=== PATIENT | female | born 1960 | race Caucasian/White ===

== ENCOUNTER → 2017-10-21 11:19 | Outpatient (REF) | payer MEDICARE, SELFPAY ==
[2017-10-21 14:00] LABS: Amphetamine/Metha Screen,Urine Negative ng/mL (<1000); Barbiturates Screen,Urine Negative ng/mL (<200); Benzodiazepines Screen,Urine Negative ng/mL (200); Cannabinoid Screen,Urine Positive ng/mL (<50); Cocaine Screen,Urine Negative ng/g (<300); Methadone Screen,Urine Negative ng/mL (<300); Opiate Screen,Urine Positive ng/mL (<300); Phencyclidine Screen,Urine Negative ng/mL (<25)
== END ==
LOC: LAB 11:19
PROVIDERS: Visit Provider Emergency Medicine
DX: Z79.899 Other long term (current) drug therapy (principal)
CPT/HCPCS: 80305

== ENCOUNTER → 2017-11-18 13:51 | Outpatient (REF) | payer MEDICARE, SELFPAY ==
[2017-11-18 14:20] LABS: Amphetamine/Metha Screen,Urine Negative ng/mL (<1000); Barbiturates Screen,Urine Negative ng/mL (<200); Benzodiazepines Screen,Urine Negative ng/mL (200); Cannabinoid Screen,Urine Negative ng/mL (<50); Cocaine Screen,Urine Negative ng/g (<300); Methadone Screen,Urine Negative ng/mL (<300); Opiate Screen,Urine Positive ng/mL (<300); Phencyclidine Screen,Urine Negative ng/mL (<25)
== END ==
LOC: LAB 13:51
PROVIDERS: Visit Provider Emergency Medicine
DX: M51.36 Other intervertebral disc degeneration, lumbar region (principal)
CPT/HCPCS: 80305

== ENCOUNTER → 2017-12-15 10:25 | Outpatient (REF) | payer MEDICARE, SELFPAY ==
[2017-12-15 13:52] LABS: Amphetamine/Metha Screen,Urine Negative ng/mL (<1000); Barbiturates Screen,Urine Negative ng/mL (<200); Benzodiazepines Screen,Urine Positive ng/mL (200); Cannabinoid Screen,Urine Positive ng/mL (<50); Cocaine Screen,Urine Negative ng/g (<300); Methadone Screen,Urine Negative ng/mL (<300); Opiate Screen,Urine Positive ng/mL (<300); Phencyclidine Screen,Urine Negative ng/mL (<25)
== END ==
LOC: LAB 10:25
PROVIDERS: Visit Provider Emergency Medicine
DX: M51.36 Other intervertebral disc degeneration, lumbar region (principal)
CPT/HCPCS: 80305

== ENCOUNTER → 2018-02-10 13:04 | Outpatient (REF) | payer MEDICARE, MEDICAID, SELFPAY ==
[2018-02-10 20:42] LABS: Amphetamine/Metha Screen,Urine Negative ng/mL (<1000); Barbiturates Screen,Urine Negative ng/mL (<200); Benzodiazepines Screen,Urine Negative ng/mL (200); Cannabinoid Screen,Urine Positive ng/mL (<50); Cocaine Screen,Urine Negative ng/g (<300); Methadone Screen,Urine Negative ng/mL (<300); Opiate Screen,Urine Positive ng/mL (<300); Phencyclidine Screen,Urine Negative ng/mL (<25)
== END ==
LOC: LAB 13:04
PROVIDERS: Visit Provider Emergency Medicine
DX: M51.36 Other intervertebral disc degeneration, lumbar region (principal); Z79.899 Other long term (current) drug therapy
CPT/HCPCS: 80305

== ENCOUNTER → 2018-03-16 09:11 | Outpatient (REF) | payer MEDICARE, MEDICAID, SELFPAY ==
[2018-03-16 14:37] LABS: Amphetamine/Metha Screen,Urine Negative ng/mL (<1000); Barbiturates Screen,Urine Negative ng/mL (<200); Benzodiazepines Screen,Urine Positive ng/mL (200); Cannabinoid Screen,Urine Positive ng/mL (<50); Cocaine Screen,Urine Negative ng/g (<300); Methadone Screen,Urine Negative ng/mL (<300); Opiate Screen,Urine Positive ng/mL (<300); Phencyclidine Screen,Urine Negative ng/mL (<25)
== END ==
LOC: LAB 09:11
PROVIDERS: Visit Provider Emergency Medicine
DX: M51.36 Other intervertebral disc degeneration, lumbar region (principal)
CPT/HCPCS: 80305

== ENCOUNTER → 2018-04-12 09:57 | Outpatient (REF) | payer MEDICARE, MEDICAID, SELFPAY ==
[2018-04-12 13:44] LABS: Amphetamine/Metha Screen,Urine Negative ng/mL (<1000); Barbiturates Screen,Urine Negative ng/mL (<200); Benzodiazepines Screen,Urine Negative ng/mL (<200); Cannabinoid Screen,Urine Negative ng/mL (<50); Cocaine Screen,Urine Negative ng/mL (<300); Methadone Screen,Urine Negative ng/mL (<300); Opiate Screen,Urine Positive ng/mL (<300); Phencyclidine Screen,Urine Negative ng/mL (<25)
== END ==
LOC: LAB 09:57
PROVIDERS: Visit Provider Emergency Medicine
DX: M51.36 Other intervertebral disc degeneration, lumbar region (principal)
CPT/HCPCS: 80305

== ENCOUNTER → 2018-05-12 10:09 | Outpatient (REF) | payer MEDICARE, MEDICAID, SELFPAY ==
[2018-05-12 13:59] LABS: Amphetamine/Metha Screen,Urine Negative ng/mL (<1000); Barbiturates Screen,Urine Negative ng/mL (<200); Benzodiazepines Screen,Urine Positive ng/mL (<200); Cannabinoid Screen,Urine Positive ng/mL (<50); Cocaine Screen,Urine Negative ng/mL (<300); Methadone Screen,Urine Negative ng/mL (<300); Opiate Screen,Urine Positive ng/mL (<300); Phencyclidine Screen,Urine Negative ng/mL (<25)
== END ==
LOC: LAB 10:09
PROVIDERS: Visit Provider Emergency Medicine
DX: M51.36 Other intervertebral disc degeneration, lumbar region (principal)
CPT/HCPCS: 80305

== ENCOUNTER → 2018-07-05 11:27 | Outpatient (REF) | payer MEDICARE, MEDICAID, SELFPAY ==
[2018-07-05 13:24] LABS: Amphetamine/Metha Screen,Urine Negative ng/mL (<1000); Barbiturates Screen,Urine Negative ng/mL (<200); Benzodiazepines Screen,Urine Negative ng/mL (<200); Cannabinoid Screen,Urine Positive ng/mL (<50); Cocaine Screen,Urine Negative ng/mL (<300); Methadone Screen,Urine Negative ng/mL (<300); Opiate Screen,Urine Positive ng/mL (<300); Phencyclidine Screen,Urine Negative ng/mL (<25)
== END ==
LOC: LAB 11:27
PROVIDERS: Visit Provider Emergency Medicine
DX: Z79.899 Other long term (current) drug therapy (principal)
CPT/HCPCS: 80305

== ENCOUNTER → 2018-08-04 13:49 | Outpatient (CLI) | payer MEDICARE, MEDICAID, SELFPAY ==
[2018-08-04 14:33] LABS: Amphetamine/Metha Screen,Urine Negative ng/mL (<1000); Barbiturates Screen,Urine Negative ng/mL (<200); Benzodiazepines Screen,Urine Negative ng/mL (<200); Cannabinoid Screen,Urine Negative ng/mL (<50); Cocaine Screen,Urine Negative ng/mL (<300); Methadone Screen,Urine Negative ng/mL (<300); Opiate Screen,Urine Negative ng/mL (<300); Phencyclidine Screen,Urine Negative ng/mL (<25)
== END ==
PROVIDERS: PCP Emergency Medicine; Visit Provider Emergency Medicine
DX: M51.36 Other intervertebral disc degeneration, lumbar region (principal)
CPT/HCPCS: 80305

== ENCOUNTER → 2018-09-03 14:42 | Outpatient (CLI) | payer MEDICARE, MEDICAID, SELFPAY ==
[2018-09-03 16:35] LABS: Amphetamine/Metha Screen,Urine Negative ng/mL (<1000); Barbiturates Screen,Urine Negative ng/mL (<200); Benzodiazepines Screen,Urine Negative ng/mL (<200); Cannabinoid Screen,Urine Positive ng/mL (<50); Cocaine Screen,Urine Negative ng/mL (<300); Methadone Screen,Urine Negative ng/mL (<300); Opiate Screen,Urine Positive ng/mL (<300); Phencyclidine Screen,Urine Negative ng/mL (<25)
== END ==
PROVIDERS: Visit Provider Emergency Medicine
DX: M54.16 Radiculopathy, lumbar region (principal)
CPT/HCPCS: 80305

== ENCOUNTER → 2018-09-15 21:32 | Outpatient (CLI) | payer MEDICARE, MEDICAID, SELFPAY ==
[2018-09-15 21:56] LABS: Amphetamine/Metha Screen,Urine Negative ng/mL (<1000); Barbiturates Screen,Urine Negative ng/mL (<200); Benzodiazepines Screen,Urine Negative ng/mL (<200); Cannabinoid Screen,Urine Positive ng/mL (<50); Cocaine Screen,Urine Negative ng/mL (<300); Methadone Screen,Urine Negative ng/mL (<300); Opiate Screen,Urine Negative ng/mL (<300); Phencyclidine Screen,Urine Negative ng/mL (<25)
[2018-09-28 11:07] LABS: Oxymorphone (GC/MS) 2622
[2018-09-28 11:09] LABS: Opiates Negative
== END ==
PROVIDERS: Visit Provider Emergency Medicine
DX: M54.16 Radiculopathy, lumbar region (principal)
CPT/HCPCS: 80305; 80361; 80365; G0480

== ENCOUNTER → 2018-09-29 13:42 | Outpatient (CLI) | payer MEDICARE, MEDICAID, SELFPAY ==
[2018-09-29 14:39] LABS: Amphetamine/Metha Screen,Urine Negative ng/mL (<1000); Barbiturates Screen,Urine Negative ng/mL (<200); Benzodiazepines Screen,Urine Negative ng/mL (<200); Cannabinoid Screen,Urine Positive ng/mL (<50); Cocaine Screen,Urine Positive ng/mL (<300); Methadone Screen,Urine Negative ng/mL (<300); Opiate Screen,Urine Positive ng/mL (<300); Phencyclidine Screen,Urine Negative ng/mL (<25)
[2018-10-04 15:21] LABS: Benzoylecgonine (GC/MS) 830 ng/mL (Cutoff=150); Cocaine + Metabolite Positive (.)
== END ==
PROVIDERS: Visit Provider Emergency Medicine
DX: M54.5 Low back pain (principal); Z79.899 Other long term (current) drug therapy
CPT/HCPCS: 80305; 80353

== ENCOUNTER → 2018-10-22 13:53 | Outpatient (CLI) | payer MEDICARE, MEDICAID, SELFPAY ==
[2018-10-22 15:39] LABS: Amphetamine/Metha Screen,Urine Negative ng/mL (<1000); Barbiturates Screen,Urine Negative ng/mL (<200); Benzodiazepines Screen,Urine Negative ng/mL (<200); Cannabinoid Screen,Urine Negative ng/mL (<50); Cocaine Screen,Urine Negative ng/mL (<300); Methadone Screen,Urine Negative ng/mL (<300); Opiate Screen,Urine Positive ng/mL (<300); Phencyclidine Screen,Urine Negative ng/mL (<25)
== END ==
PROVIDERS: PCP Emergency Medicine; Visit Provider Emergency Medicine
DX: Z79.899 Other long term (current) drug therapy (principal)
CPT/HCPCS: 80305

== ENCOUNTER → 2018-11-23 14:10 | Outpatient (CLI) | payer MEDICARE, MEDICAID, SELFPAY ==
[2018-11-23 14:43] LABS: Basophils % 0.6 % (0.1-2.0); Eosinophils # 0.3 K/mm3 (0.0-0.4); Eosinophils % 4.7 % (0.1-12.0); Hematocrit 41.8 % (37.0-47.0); Hemoglobin 13.5 g/dL (12.2-16.2); Lymphocytes % 30.1 % (10-50); Mean Corpuscular HGB Conc 32.4 g/dL (31.8-35.4); Mean Corpuscular Hemoglobin 30.1 pg (27.0-31.2); Mean Platelet Volume 8.5 fl (7.4-10.4); Monocytes # 0.3 K/mm3 (0.1-1.0); Monocytes % 4.4 % (1.7-9.3); Neutrophils % 60.2 % (37.0-80.0); Platelet Count 226 K/mm3 (142-424); Red Cell Distribution Width 13.7 % (11.5-17.5); White Blood Count 6.7 K/mm3 (4.8-10.8)
[2018-11-23 15:06] LABS: Alanine Aminotransferase 24 U/L (12-78); Albumin Level 3.6 gm/dL (3.4-5.0); Alkaline Phosphatase 99 U/L (46-116); Anion Gap 12.1 mEq/L (5-15); Aspartate Amino Transferase 12 U/L (15-37); Bilirubin,Total 0.2 mg/dL (0.2-1.0); Blood Urea Nitrogen 14 mg/dL (7-18); Calcium 8.9 mg/dL (8.5-10.1); Carbon Dioxide 30 mmol/L (21.0-32.0); Chloride 103 mmol/L (98-107); Cholesterol 228 mg/dL (140-200); Creatinine,Serum 0.92 mg/dL (0.55-1.02); Estimated Glomerular Filt Rate 63 ml/min (>60); Free T4 (Free Thyroxine) 0.91 ng/dl (0.76-1.46); GFR (African American) 76 ML/MIN (>60); Globulin 3.5 gm/dl (1.3-3.2); Glucose 91 mg/dL (74-106); HDL Cholesterol 57 mg/dL (29-89); LDL Cholesterol 135 mg/dL (0-130); Potassium 4.1 mmoL/L (3.5-5.1); Sodium 141 mmol/L (136-145); Thyroid Stimulating Hormone 1.55 uIU/ml (0.358-3.740); Total Protein,Serum 7.1 gm/dL (6.4-8.2); Triglycerides 180 mg/dL (30-200); VLDL Cholesterol 36 mg/dL (0-40)
[2018-11-23 15:46] LABS: Amphetamine/Metha Screen,Urine Negative ng/mL (<1000); Barbiturates Screen,Urine Negative ng/mL (<200); Benzodiazepines Screen,Urine Negative ng/mL (<200); Cannabinoid Screen,Urine Negative ng/mL (<50); Cocaine Screen,Urine Negative ng/mL (<300); Methadone Screen,Urine Negative ng/mL (<300); Opiate Screen,Urine Negative ng/mL (<300); Phencyclidine Screen,Urine Negative ng/mL (<25)
[2018-11-27 10:06] LABS: Vitamin D 25 Hydroxy 8.1 ng/mL (30.0-100.0)
== END ==
PROVIDERS: Visit Provider Emergency Medicine
DX: Z79.899 Other long term (current) drug therapy (principal); I10 Essential (primary) hypertension; F17.210 Nicotine dependence, cigarettes, uncomplicated
CPT/HCPCS: 80053; 80061; 80305; 82652; 84439; 84443; 85025

== ENCOUNTER → 2019-01-18 17:29 | Outpatient (CLI) | payer MEDICARE, MEDICAID, SELFPAY ==
[2019-01-18 19:08] LABS: Amphetamine/Metha Screen,Urine Negative ng/mL (<1000); Barbiturates Screen,Urine Negative ng/mL (<200); Benzodiazepines Screen,Urine Negative ng/mL (<200); Cannabinoid Screen,Urine Negative ng/mL (<50); Cocaine Screen,Urine Negative ng/mL (<300); Methadone Screen,Urine Negative ng/mL (<300); Opiate Screen,Urine Positive ng/mL (<300); Phencyclidine Screen,Urine Negative ng/mL (<25)
== END ==
PROVIDERS: Visit Provider Emergency Medicine
DX: Z79.899 Other long term (current) drug therapy (principal)
CPT/HCPCS: 80305

== ENCOUNTER → 2019-03-16 18:02 | Outpatient (CLI) | payer MEDICARE, MEDICAID, SELFPAY ==
[2019-03-16 18:22] LABS: Amphetamine/Metha Screen,Urine Negative ng/mL (<1000); Barbiturates Screen,Urine Negative ng/mL (<200); Benzodiazepines Screen,Urine Negative ng/mL (<200); Cannabinoid Screen,Urine Negative ng/mL (<50); Cocaine Screen,Urine Negative ng/mL (<300); Methadone Screen,Urine Negative ng/mL (<300); Opiate Screen,Urine Positive ng/mL (<300); Phencyclidine Screen,Urine Negative ng/mL (<25)
== END ==
PROVIDERS: Visit Provider Emergency Medicine
DX: Z79.899 Other long term (current) drug therapy (principal)
CPT/HCPCS: 80305

== ENCOUNTER → 2019-05-13 13:29 | Outpatient (CLI) | payer MEDICARE, MEDICAID, SELFPAY ==
[2019-05-13 16:02] LABS: Amphetamine/Metha Screen,Urine Negative ng/mL (<1000); Barbiturates Screen,Urine Negative ng/mL (<200); Benzodiazepines Screen,Urine Negative ng/mL (<200); Cannabinoid Screen,Urine Negative ng/mL (<50); Cocaine Screen,Urine Negative ng/mL (<300); Methadone Screen,Urine Negative ng/mL (<300); Opiate Screen,Urine Positive ng/mL (<300); Phencyclidine Screen,Urine Negative ng/mL (<25)
== END ==
PROVIDERS: Visit Provider Emergency Medicine
DX: M54.16 Radiculopathy, lumbar region (principal)
CPT/HCPCS: 80305

== ENCOUNTER → 2019-07-04 13:28 | Outpatient (CLI) | payer MEDICARE, MEDICAID, SELFPAY ==
[2019-07-04 17:04] LABS: Amphetamine/Metha Screen,Urine Negative ng/mL (<1000); Barbiturates Screen,Urine Negative ng/mL (<200); Benzodiazepines Screen,Urine Negative ng/mL (<200); Cannabinoid Screen,Urine Negative ng/mL (<50); Cocaine Screen,Urine Negative ng/mL (<300); Methadone Screen,Urine Negative ng/mL (<300); Opiate Screen,Urine Positive ng/mL (<300); Phencyclidine Screen,Urine Negative ng/mL (<25)
== END ==
PROVIDERS: Visit Provider Emergency Medicine
DX: M54.16 Radiculopathy, lumbar region (principal)
CPT/HCPCS: 80305

== ENCOUNTER → 2019-09-02 13:34 | Outpatient (CLI) | payer MEDICARE, MEDICAID, SELFPAY ==
[2019-09-02 16:27] LABS: Amphetamine/Metha Screen,Urine Negative ng/mL (<1000); Barbiturates Screen,Urine Negative ng/mL (<200); Benzodiazepines Screen,Urine Negative ng/mL (<200); Cannabinoid Screen,Urine Negative ng/mL (<50); Cocaine Screen,Urine Negative ng/mL (<300); Methadone Screen,Urine Negative ng/mL (<300); Opiate Screen,Urine Positive ng/mL (<300); Phencyclidine Screen,Urine Negative ng/mL (<25)
== END ==
PROVIDERS: Visit Provider Emergency Medicine
DX: M54.16 Radiculopathy, lumbar region (principal)
CPT/HCPCS: 80305

== ENCOUNTER → 2019-11-07 13:23 | Outpatient (CLI) | payer MEDICARE, MEDICAID, SELFPAY ==
[2019-11-07 13:38] LABS: Basophils # 0.1 K/mm3 (0-0.2); Basophils % 0.9 % (0.1-2.0); Eosinophils # 0.5 K/mm3 (0.0-0.4); Hematocrit 41.2 % (37.0-47.0); Hemoglobin 13.7 g/dL (12.2-16.2); Lymphocytes # 2.4 K/mm3 (0.7-4.5); Mean Corpuscular HGB Conc 33.4 g/dL (31.8-35.4); Mean Corpuscular Hemoglobin 30.2 pg (27.0-31.2); Mean Corpuscular Volume 90.5 fl (81-99); Mean Platelet Volume 8.1 fl (7.4-10.4); Monocytes # 0.3 K/mm3 (0.1-1.0); Monocytes % 4.3 % (1.7-9.3); Neutrophils # 3.3 K/mm3 (1.8-7.8); Neutrophils % 49.9 % (37.0-80.0); Platelet Count 267 K/mm3 (142-424); Red Blood Count 4.55 M/mm3 (4.20-5.40); Red Cell Distribution Width 13.1 % (11.5-17.5); White Blood Count 6.5 K/mm3 (4.8-10.8)
[2019-11-07 14:06] LABS: Alanine Aminotransferase 19 U/L (9-52); Albumin Level 3.7 g/dL (3.4-5.0); Albumin/Globulin Ratio 1.1 (1.1-1.8); Alkaline Phosphatase 98 U/L (46-116); Aspartate Amino Transferase 16 U/L (15-37); Bilirubin,Total 0.2 mg/dL (0.2-1.0); Blood Urea Nitrogen 13 mg/dL (7-18); Calcium 8.9 mg/dL (8.5-10.1); Carbon Dioxide 30 mmol/L (21.0-32.0); Chloride 106 mmol/L (98-107); Chol/HDL Ratio 3.1 (1-3.5); Cholesterol 213 mg/dL (140-200); Creatinine,Serum 0.83 mg/dL (0.55-1.02); Estimated Glomerular Filt Rate 71 ml/min (>60); Free T4 (Free Thyroxine) 1.08 ng/dl (0.76-1.46); GFR (African American) 85 ML/MIN (>60); Globulin 3.4 gm/dl (1.3-3.2); Glucose 90 mg/dL (74-106); HDL Cholesterol 68 mg/dL (29-89); LDL Cholesterol 128 mg/dL (0-130); Sodium 144 mmol/L (137-145); Thyroid Stimulating Hormone 1.41 uIU/ml (0.358-3.740); Total Protein,Serum 7.1 g/dL (6.4-8.2); Triglycerides 83 mg/dL (30-200); VLDL Cholesterol 17 mg/dL (0-40)
[2019-11-07 14:40] LABS: Amphetamine/Metha Screen,Urine Negative ng/mL (<1000); Barbiturates Screen,Urine Negative ng/mL (<200); Benzodiazepines Screen,Urine Negative ng/mL (<200); Cannabinoid Screen,Urine Negative ng/mL (<50); Cocaine Screen,Urine Negative ng/mL (<300); Methadone Screen,Urine Negative ng/mL (<300); Opiate Screen,Urine Positive ng/mL (<300); Phencyclidine Screen,Urine Negative ng/mL (<25)
[2019-11-11 07:51] LABS: Vitamin D 25 Hydroxy 10.4 ng/mL (30.0-100.0)
== END ==
PROVIDERS: Visit Provider Emergency Medicine
DX: E66.9 Obesity, unspecified (principal); M54.5 Low back pain; R53.83 Other fatigue; I10 Essential (primary) hypertension; E55.9 Vitamin D deficiency, unspecified
CPT/HCPCS: 80053; 80061; 80305; 82652; 84439; 84443; 85025

== ENCOUNTER → 2020-11-28 14:02 | Outpatient (CLI) | payer MEDICARE, MEDICAID, SELFPAY ==
[2020-11-28 14:58] LABS: Amphetamine/Metha Screen,Urine Negative ng/ml (<1000)
[2020-11-28 14:59] LABS: Barbiturates Screen,Urine Negative ng/ml (<200); Benzodiazepines Screen,Urine Positive ng/ml (<200)
[2020-11-28 15:00] LABS: Cannabinoid Screen,Urine Positive ng/ml (<50)
[2020-11-28 15:01] LABS: Cocaine Screen,Urine Negative ng/ml (<300); Methadone Screen,Urine Negative ng/ml (<300)
[2020-11-28 15:02] LABS: Opiate Screen,Urine Negative ng/ml (<300)
[2020-11-28 15:04] LABS: Phencyclidine Screen,Urine Negative ng/ml (<25)
== END ==
PROVIDERS: Visit Provider Emergency Medicine
DX: M54.16 Radiculopathy, lumbar region (principal); Z79.899 Other long term (current) drug therapy
CPT/HCPCS: 80305

== ENCOUNTER → 2021-01-23 13:49 | Outpatient (CLI) | payer MEDICARE, MEDICAID, SELFPAY ==
[2021-01-23 15:36] LABS: Amphetamine/Metha Screen,Urine Negative ng/ml (<1000); Barbiturates Screen,Urine Negative ng/ml (<200)
[2021-01-23 15:37] LABS: Benzodiazepines Screen,Urine Negative ng/ml (<200)
[2021-01-23 15:38] LABS: Cannabinoid Screen,Urine Positive ng/ml (<50); Cocaine Screen,Urine Negative ng/ml (<300)
[2021-01-23 15:39] LABS: Methadone Screen,Urine Negative ng/ml (<300)
[2021-01-23 15:40] LABS: Opiate Screen,Urine Negative ng/ml (<300); Phencyclidine Screen,Urine Negative ng/ml (<25)
== END ==
PROVIDERS: Visit Provider Emergency Medicine
DX: M54.16 Radiculopathy, lumbar region (principal)
CPT/HCPCS: 80305

== ENCOUNTER → 2021-03-20 12:49 | Outpatient (CLI) | payer MEDICARE, MEDICAID, SELFPAY ==
[2021-03-20 14:23] LABS: Barbiturates Screen,Urine Negative ng/ml (<200)
[2021-03-20 14:24] LABS: Amphetamine/Metha Screen,Urine Negative ng/ml (<1000)
[2021-03-20 14:26] LABS: Benzodiazepines Screen,Urine Negative ng/ml (<200)
[2021-03-20 14:27] LABS: Cannabinoid Screen,Urine Negative ng/ml (<50); Cocaine Screen,Urine Negative ng/ml (<300)
[2021-03-20 14:28] LABS: Opiate Screen,Urine Positive ng/ml (<300)
[2021-03-20 14:29] LABS: Phencyclidine Screen,Urine Negative ng/ml (<25)
[2021-03-20 14:32] LABS: Methadone Screen,Urine Negative ng/ml (<300)
== END ==
PROVIDERS: Visit Provider Emergency Medicine
DX: M54.16 Radiculopathy, lumbar region (principal)
CPT/HCPCS: 80305

== ENCOUNTER → 2021-05-17 13:26 | Outpatient (CLI) | payer MEDICARE, MEDICAID, SELFPAY ==
--- NOTE | 2021-05-17 13:30 | CA_ITS ---
APPROVED REPORT EXAM: Comprehensive 2D, Doppler, and color-flow Echocardiogram Construction Trades Contractor: Bruna Swift RT(R) Ht: 5 ft 7 in Wt: 184lbs BSA: 1.95 BP: 140/100 mmHg Indications: pre op, CAD, Abn EKG, smoker, HTN, hyperlipidemia 2D Dimensions LVOT 1.92 cm (M/F) 1.5-2.5 M-Mode Dimensions RVDd 2.85 cm (0.9-2.6) LA Diam 2.33 cm (1.9-4.0) LVDd 3.76 cm (3.5-5.7) Ao Diam 2.55 cm (2.0-3.7) LVDs 2.62 cm (3.5-5.7) IVSd 1.29 cm (0.6-1.1) PWd 0.72 cm (0.6-1.1) EF (Teich) 58.40% FS 30.30% EDV (Teich) 60.40 mL ESV (Teich) 25.10 mL LV Diastology E Decel Time 207.00 (160-240 msec) E/A Ratio 0.6 MED E' 5.70 (< 7 cm/sec) E'/MED E' Ratio 7.58 (>14) LAT E' 6.60 (<10 cm/sec) E/LAT E' Ratio 6.55 (>14) Mitral Valve MV E Max Tre. 43.00 (40-130 cm/s) MV A Velocity 76.00 (40-130 cm/s) E/A Ratio 0.57 MV Decel. Time 207.00 (160-240 ms) MV PHT 61.00 ms Left Ventricle Left atrium is mildly enlarged, left ventricle is normal size, mild concentric left ventricular hypertrophy, visually estimated ejection fraction 55% with no regional wall motion abnormality, grade 1 diastolic dysfunction seen without tissue Doppler evidence of raise left atrial pressure. Right Ventricle Right atrium and right ventricle are mildly enlarged with normal contractility. Aortic Valve Aortic valve is minimally thickened and fibrosed, there is no aortic stenosis or aortic insufficiency. Mitral Valve Mitral valve is grossly normal, there is trace mitral regurgitation. Tricuspid Valve Tricuspid valve grossly normal, there is trace tricuspid regurgitation, tricuspid regurgitation jet velocity is inadequate for calculation of the right ventricular systolic pressure. Pulmonic Valve Pulmonic valve is poorly visualized. Great Vessels Aortic root is normal size. Pericardium No significant pericardial effusion noted. Conclusion 1. Mild biatrial enlargement, normal left ventricular size, mild concentric left ventricular hypertrophy, visually estimated ejection fraction 55% with no regional wall motion abnormality, grade 1 diastolic dysfunction seen without tissue Doppler evidence of raise left atrial pressure. 2. Mildly enlarged right ventricle with normal contractility. 3. Trace mitral and tricuspid regurgitation. 4. No significant pericardial effusion noted. Electronically signed by : Nader Dixon MD 05/17/2021 18:28:08
== END ==
PROVIDERS: PCP Emergency Medicine; Visit Provider Urology
DX: E78.5 Hyperlipidemia, unspecified (principal); I10 Essential (primary) hypertension; I25.10 Atherosclerotic heart disease of native coronary artery without angina pectoris; R94.31 Abnormal electrocardiogram [ECG] [EKG]; Z01.810 Encounter for preprocedural cardiovascular examination; Z72.0 Tobacco use
CPT/HCPCS: 93306

== ENCOUNTER → 2021-05-20 08:10 | Outpatient (CLI) | payer MEDICARE, MEDICAID, SELFPAY ==
--- NOTE | 2021-05-20 08:12 | NM_ITS ---
APPROVED REPORT Exam: Nuclear Stress Test Indication: Abnormal EKG, Pre op, CAD, HTN, High cholesterol,Tobacco use Patient Location: Outpatient Stress Tech: Martina Green [place] Tech:Renita Amor, ARRT, RT (R)(N) Ht: 5 ft 7 in Wt: 184 lbs Bra Size: 38D HR: 132 bpm BP: 238/98 mmHg BSA: 1.95 m2 BMI: 28.8 History: Abnormal EKG, Pre op, CAD, HTN, High cholesterol,Tobacco use Procedure: Patient received a 0.4 mg of intravenous Lexiscan, resting heart rate 132 bpm, resting blood pressure 238/98 mmHg, with Lexiscan maximum heart rate achived was 90 bpm which is Less than 85 % of the maximum predicted heart rate and blood pressure was 225/118 mmHg. With Lexiscan, patient denied any complaint of chest pain. Electrocardiogram Resting electrocardiogram showed sinus rhythm nonspecific ST-T changes, with Lexiscan there is less than 1.[address] segment depression noted from the baseline EKG. The EKG portion of the Lexiscan is nondiagnostic. Cardiac Stress and Resting SPECT Images: Cardiac Stress and Resting SPECT images were obtained using technetium 99m Myoview 29.9 mCi stress and 10.01 mCi at rest. Gated SPECT for analysis of segmental wall motion and calculation of the ejection fraction also done. Cardiac stress and rest SPECT images show mild fixed defect in the anterior wall with normal rony gated SPECT is likely secondary to soft tissue attenuation, no reversible ischemia seen, computer derived ejection fraction is 60% with no regional wall motion abnormality, right ventricle is normal size and contractility. Conclusion: 1. The EKG portion of the Lexiscan Myoview is nondiagnostic. 2. No scintigraphic evidence of reversible ischemia seen, computer derived ejection fraction is 60% with no regional wall motion abnormality, right ventricle is normal size and contractility. 3. Likely normal Lexiscan Myoview study. Electronically signed by : Nader Dixon MD 05/20/2021 19:40:55
--- NOTE | 2021-05-20 08:12 | CA_ITS ---
APPROVED REPORT Exam: Pharmacologic Technologist: Martina Green Ht: 5 ft 7 in Wt: 184 lbs BSA: 1.95 m2 HR: 55 bpm BP: 238/98 mmHg Medical History Medications: Amlodipine,,,,, Aspirin,,,,, Gabapentin,,,,, CloPIdogrel,,,,, DulOXETINE,,,,, OxYCODONE,,,,, PaROXETINE,,,,, Lisinopri/HCTZ,,,,, Stress Test Details Test: LEXISCAN HR Resting HR: 57 bpm Max Heart Rate (APMHR): 160.799107 bpm Max HR Achieved: 132 bpm Target HR (85% APMHR): 136.983486 bpm % of APMHR: 82.50 Recovery HR: 90 bpm BP Resting BP: 238.0/98.0 mmHg Max BP: 222.0/100 mmHg Recovery BP: 225.0/118.0 mmHg ECG Resting ECG: Sinus bradycardia with NSSTTW Abnormalities Clinical Reason for Termination: Completed Protocol Exercise duration: 04:09 min Highest Stage Achieved: Stress ECG Conclusion Abnormal, non-diagnostic lexiscan stress test. Patient received the infusion per protocol without chest pain or significant arrhythmias (one PVC noted). Baseline EKG is sinus with inferior and lateral STT abnormalities that were exacerbated during stress. Patient did dry heave and then vomit several times during the initial portion of the stress test so blood pressure was unable to be obtained. After the stress test, she was given amlodipine 20 mg (her home dose). See the nuclear report for further information. Electronically signed by : Nader Dixon MD 05/20/2021 19:32:44
--- NOTE | 2021-05-20 09:51 | HMH.ITSHM ---
Current Home Medications as stated by this patient Whitney Murphy or workforce services representative. []OXYCODONE LISINOPRIL GABAPENTIN ASA AMLODIPINE
== END ==
PROVIDERS: PCP Emergency Medicine; Visit Provider Urology
DX: E78.5 Hyperlipidemia, unspecified (principal); I10 Essential (primary) hypertension; I25.10 Atherosclerotic heart disease of native coronary artery without angina pectoris; R94.31 Abnormal electrocardiogram [ECG] [EKG]; Z01.810 Encounter for preprocedural cardiovascular examination; Z72.0 Tobacco use
CPT/HCPCS: 78452; 93017; A9502; J2785

== ENCOUNTER → 2021-07-10 14:58 | Outpatient (CLI) | payer MEDICARE, MEDICAID, SELFPAY ==
[2021-07-10 16:45] LABS: Amphetamine/Metha Screen,Urine Negative ng/ml (<1000)
[2021-07-10 16:46] LABS: Barbiturates Screen,Urine Negative ng/ml (<200); Benzodiazepines Screen,Urine Negative ng/ml (<200)
[2021-07-10 16:47] LABS: Cannabinoid Screen,Urine Positive ng/ml (<50); Cocaine Screen,Urine Negative ng/ml (<300)
[2021-07-10 16:48] LABS: Methadone Screen,Urine Negative ng/ml (<300)
[2021-07-10 16:49] LABS: Opiate Screen,Urine Negative ng/ml (<300)
[2021-07-10 16:51] LABS: Phencyclidine Screen,Urine Negative ng/ml (<25)
== END ==
PROVIDERS: Visit Provider Emergency Medicine
DX: Z79.899 Other long term (current) drug therapy (principal)
CPT/HCPCS: 80305

== ENCOUNTER → 2021-09-04 18:25 | Outpatient (CLI) | payer MEDICARE, MEDICAID, SELFPAY ==
[2021-09-04 18:30] LABS: Coronavirus 19, PCR Not Detected (NotDetected); Influenza A, PCR Not Detected (NotDetected); Influenza B, PCR Not Detected (NotDetected)
[2021-09-04 22:12] LABS: Amphetamine/Metha Screen,Urine Negative ng/ml (<1000)
[2021-09-04 22:13] LABS: Barbiturates Screen,Urine Negative ng/ml (<200)
[2021-09-04 22:14] LABS: Benzodiazepines Screen,Urine Negative ng/ml (<200); Cannabinoid Screen,Urine Negative ng/ml (<50)
[2021-09-04 22:15] LABS: Cocaine Screen,Urine Negative ng/ml (<300)
[2021-09-04 22:16] LABS: Methadone Screen,Urine Negative ng/ml (<300); Opiate Screen,Urine Positive ng/ml (<300)
[2021-09-04 22:17] LABS: Phencyclidine Screen,Urine Negative ng/ml (<25)
== END ==
PROVIDERS: Visit Provider Emergency Medicine
DX: R05.9 Cough, unspecified (principal); M54.16 Radiculopathy, lumbar region; Z20.822 Contact with and (suspected) exposure to COVID-19
CPT/HCPCS: 80305; C9803; U0003; U0005

== ENCOUNTER → 2021-12-31 16:36 | Outpatient (CLI) | payer MEDICARE, MEDICAID, SELFPAY ==
[2021-12-31 16:55] LABS: Barbiturates Screen,Urine Negative ng/ml (<200)
[2021-12-31 16:56] LABS: Amphetamine/Metha Screen,Urine Negative ng/ml (<1000); Benzodiazepines Screen,Urine Negative ng/ml (<200)
[2021-12-31 16:57] LABS: Cannabinoid Screen,Urine Negative ng/ml (<50)
[2021-12-31 16:58] LABS: Cocaine Screen,Urine Negative ng/ml (<300); Methadone Screen,Urine Negative ng/ml (<300)
[2021-12-31 16:59] LABS: Opiate Screen,Urine Positive ng/ml (<300); Phencyclidine Screen,Urine Negative ng/ml (<25)
== END ==
PROVIDERS: Visit Provider Emergency Medicine
DX: M54.16 Radiculopathy, lumbar region (principal)
CPT/HCPCS: 80305

== ENCOUNTER → 2022-06-11 16:41 | Outpatient (CLI) | payer MEDICARE, MEDICAID, SELFPAY ==
[2022-06-11 15:51] LABS: Benzodiazepines Screen,Urine Positive ng/ml (<200)
[2022-06-11 15:52] LABS: Amphetamine/Metha Screen,Urine Negative ng/ml (<1000)
[2022-06-11 15:53] LABS: Barbiturates Screen,Urine Negative ng/ml (<200); Cannabinoid Screen,Urine Positive ng/ml (<50)
[2022-06-11 15:54] LABS: Cocaine Screen,Urine Negative ng/ml (<300); Methadone Screen,Urine Negative ng/ml (<300)
[2022-06-11 15:56] LABS: Opiate Screen,Urine Negative ng/ml (<300); Phencyclidine Screen,Urine Negative ng/ml (<25)
== END ==
PROVIDERS: PCP Emergency Medicine; Visit Provider Emergency Medicine
DX: M54.16 Radiculopathy, lumbar region (principal)
CPT/HCPCS: 80305

== ENCOUNTER → 2022-08-08 18:09 | Outpatient (CLI) | payer MEDICARE, MEDICAID, SELFPAY ==
[2022-08-08 16:07] LABS: Amphetamine/Metha Screen,Urine Negative ng/ml (<1000)
[2022-08-08 16:08] LABS: Barbiturates Screen,Urine Negative ng/ml (<200)
[2022-08-08 16:09] LABS: Benzodiazepines Screen,Urine Negative ng/ml (<200); Cannabinoid Screen,Urine Positive ng/ml (<50)
[2022-08-08 16:10] LABS: Cocaine Screen,Urine Negative ng/ml (<300)
[2022-08-08 16:11] LABS: Methadone Screen,Urine Negative ng/ml (<300); Opiate Screen,Urine Negative ng/ml (<300)
[2022-08-08 16:12] LABS: Phencyclidine Screen,Urine Negative ng/ml (<25)
== END ==
PROVIDERS: PCP Emergency Medicine; Visit Provider Emergency Medicine
DX: M54.16 Radiculopathy, lumbar region (principal)
CPT/HCPCS: 80305

== ENCOUNTER → 2022-10-03 16:35 | Outpatient (CLI) | payer MEDICARE, MEDICAID, SELFPAY ==
[2022-10-03 14:21] LABS: Amphetamine/Metha Screen,Urine Negative ng/ml (<1000); Barbiturates Screen,Urine Negative ng/ml (<200)
[2022-10-03 14:22] LABS: Benzodiazepines Screen,Urine Negative ng/ml (<200); Cannabinoid Screen,Urine Negative ng/ml (<50)
[2022-10-03 14:23] LABS: Cocaine Screen,Urine Negative ng/ml (<300)
[2022-10-03 14:24] LABS: Methadone Screen,Urine Negative ng/ml (<300); Opiate Screen,Urine Negative ng/ml (<300)
[2022-10-03 14:25] LABS: Phencyclidine Screen,Urine Negative ng/ml (<25)
== END ==
PROVIDERS: PCP Emergency Medicine; Visit Provider Emergency Medicine
DX: M54.16 Radiculopathy, lumbar region (principal)
CPT/HCPCS: 80305

== ENCOUNTER → 2022-11-19 13:45 | Outpatient (CLI) | payer MEDICARE, MEDICAID, SELFPAY ==
[2022-11-19 18:39] LABS: Barbiturates Screen,Urine Negative ng/ml (<200); Benzodiazepines Screen,Urine Negative ng/ml (<200)
[2022-11-19 18:40] LABS: Amphetamine/Metha Screen,Urine Negative ng/ml (<1000); Cannabinoid Screen,Urine Negative ng/ml (<50)
[2022-11-19 18:41] LABS: Cocaine Screen,Urine Negative ng/ml (<300)
[2022-11-19 18:42] LABS: Methadone Screen,Urine Negative ng/ml (<300); Opiate Screen,Urine Positive ng/ml (<300)
[2022-11-19 18:43] LABS: Phencyclidine Screen,Urine Negative ng/ml (<25)
== END ==
PROVIDERS: PCP Emergency Medicine; Visit Provider Emergency Medicine
DX: M54.16 Radiculopathy, lumbar region (principal)
CPT/HCPCS: 80305

== ENCOUNTER → 2022-11-28 08:56 | Outpatient (CLI) | payer MEDICARE, MEDICAID, SELFPAY ==
--- NOTE | 2022-11-28 09:12 | XR_ITS ---
FINAL REPORT CLINICAL HISTORY: Pain in Rt knee @ patellar region x 1 yr since fall. C/o numbness/tingling radiating down rt leg. Cane user. FINDINGS: RIGHT KNEE 3 views of the right knee were obtained. There is no acute fracture or dislocation. There are mild degenerative changes. Soft tissues are unremarkable. IMPRESSION: No acute bony abnormality. Reviewed, Interpreted and Dictated by Skyler Jama III, MD Transcribed by Berta Melo Authenticated and . [facility]
--- NOTE | 2022-11-28 09:12 | XR_ITS ---
FINAL REPORT CLINICAL HISTORY: Pain in Rt hip x 1 yr since fall. Cane user. FINDINGS: RIGHT HIP Two views of the right hip demonstrate no acute fracture or dislocation. There are severe degenerative changes of the right hip with multiple subchondral cysts. Mild degenerative changes are noted at the left hip. The visualized bony structures are well aligned. There are postoperative changes of the pelvis. No soft tissue abnormality is seen. IMPRESSION: Severe degenerative changes of the right hip without acute bony abnormality. Reviewed, Interpreted and Dictated by Skyler Jama III, MD Transcribed by Berta Melo Authenticated and [facility]
== END ==
PROVIDERS: PCP Emergency Medicine; Visit Provider Orthopaedic Surgery
DX: M25.551 Pain in right hip; M25.561 Pain in right knee
CPT/HCPCS: 73502; 73562

== ENCOUNTER → 2023-03-11 13:56 | Outpatient (CLI) | payer MEDICARE, MEDICAID, SELFPAY ==
[2023-03-11 12:57] LABS: Basophils % 0.4 % (0.1-2.0); Eosinophils # 0.4 K/mm3 (0.0-0.4); Eosinophils % 5.4 % (0.1-12.0); Hematocrit 44.6 % (37.0-47.0); Hemoglobin 14.7 g/dL (12.2-16.2); Lymphocytes # 1.9 K/mm3 (0.7-4.5); Lymphocytes % 25.8 % (10-50); Mean Corpuscular Hemoglobin 30.1 pg (27.0-31.2); Mean Corpuscular Volume 91.3 fl (81-99); Mean Platelet Volume 8.2 fl (7.4-10.4); Monocytes # 0.3 K/mm3 (0.1-1.0); Monocytes % 4.3 % (1.7-9.3); Neutrophils # 4.7 K/mm3 (1.8-7.8); Neutrophils % 64.2 % (37.0-80.0); Platelet Count 271 K/mm3 (142-424); Red Blood Count 4.89 M/mm3 (4.20-5.40); Red Cell Distribution Width 13.7 % (11.5-17.5); White Blood Count 7.3 K/mm3 (4.8-10.8)
[2023-03-11 13:02] LABS: Alanine Aminotransferase 16 U/L (12-78); Albumin Level 4.3 g/dl (3.5-5.0); Albumin/Globulin Ratio 1.4 (1.1-1.8); Alkaline Phosphatase 145 U/L (38-126); Aspartate Amino Transferase 24 U/L (14-36); Bilirubin,Total 0.5 mg/dl (0.2-1.3); Blood Urea Nitrogen 7 mg/dl (7-17); Calcium 9.3 mg/dl (8.4-10.2); Carbon Dioxide 31 mmol/L (22.0-30.0); Chloride 98 mmol/L (98-107); Chol/HDL Ratio 3.3 (1-3.5); Cholesterol 268 mg/dl (140-200); Estimated Glomerular Filt Rate 73 ml/min (>60); GFR (African American) 88 ML/MIN (>60); Globulin 3.1 g/dL (1.3-3.2); Glucose 130 mg/dl (74-100); HDL Cholesterol 81 mg/dl (40-60); Sodium 140 mmol/L (136-145); Total Protein,Serum 7.4 g/dl (6.3-8.2); Triglycerides 125 mg/dl (30-150); VLDL Cholesterol 25 mg/dL (0-40)
[2023-03-11 13:11] LABS: Amphetamine/Metha Screen,Urine Negative ng/ml (<1000)
[2023-03-11 13:12] LABS: Barbiturates Screen,Urine Negative ng/ml (<200)
[2023-03-11 13:13] LABS: Benzodiazepines Screen,Urine Negative ng/ml (<200); Cannabinoid Screen,Urine Positive ng/ml (<50); Direct LDL Cholesterol 130.74 mg/dL (100-129)
[2023-03-11 13:14] LABS: Cocaine Screen,Urine Negative ng/ml (<300)
[2023-03-11 13:15] LABS: Methadone Screen,Urine Negative ng/ml (<300); Opiate Screen,Urine Negative ng/ml (<300)
[2023-03-11 13:16] LABS: Phencyclidine Screen,Urine Negative ng/ml (<25)
[2023-03-11 13:24] LABS: 25-OH Vitamin D, Total < 12.8 ng/mL (30-100)
[2023-03-11 13:36] LABS: Thyroid Stimulating Hormone 1.13 uIU/mL (0.465-4.68)
[2023-03-11 13:55] LABS: Vitamin B12 316 pg/mL (239-931)
[2023-03-12 09:29] LABS: Estradiol 10.8 pg/mL (.); FSH 24.1 mIU/mL (.); LH 4.4 mIU/mL (.); Progesterone 0.4 ng/mL (.); Testosterone,Total 22 ng/dL (3-67)
[2023-03-18 22:07] LABS: Estrogen 98 pg/mL (40-244)
[2023-04-08 23:51] LABS: Anti Mullerian Hormone (AMH) <0.015
== END ==
PROVIDERS: PCP Emergency Medicine; Visit Provider Emergency Medicine
DX: M54.16 Radiculopathy, lumbar region (principal); Z79.899 Other long term (current) drug therapy; E55.9 Vitamin D deficiency, unspecified; R53.83 Other fatigue; I12.9 Hypertensive chronic kidney disease with stage 1 through stage 4 chronic kidney disease, or unspecified chronic kidney disease; E66.3 Overweight; Z68.28 Body mass index [BMI] 28.0-28.9, adult
CPT/HCPCS: 80053; 80061; 80305; 82306; 82397; 82607; 82670; 82672; 83001; 83002; 84144; 84403; 84439; 84443; 85025

== ENCOUNTER → 2023-05-11 15:11 | Outpatient (CLI) | payer MEDICARE, MEDICAID, SELFPAY ==
[2023-05-11 15:13] LABS: Amphetamine/Metha Screen,Urine Negative ng/ml (<1000)
[2023-05-11 15:14] LABS: Barbiturates Screen,Urine Negative ng/ml (<200)
[2023-05-11 15:17] LABS: Benzodiazepines Screen,Urine Negative ng/ml (<200); Cannabinoid Screen,Urine Negative ng/ml (<50)
[2023-05-11 15:18] LABS: Cocaine Screen,Urine Negative ng/ml (<300)
[2023-05-11 15:19] LABS: Methadone Screen,Urine Negative ng/ml (<300); Phencyclidine Screen,Urine Negative ng/ml (<25)
[2023-05-11 15:20] LABS: Opiate Screen,Urine Positive ng/ml (<300)
== END ==
PROVIDERS: PCP Emergency Medicine; Visit Provider Emergency Medicine
DX: M54.16 Radiculopathy, lumbar region (principal); Z79.899 Other long term (current) drug therapy
CPT/HCPCS: 80305

== ENCOUNTER → 2023-09-07 12:04 | Outpatient (CLI) | payer MEDICARE, MEDICAID, SELFPAY ==
[2023-09-07 12:30] LABS: Amphetamine/Metha Screen,Urine Negative ng/ml (<1000)
[2023-09-07 12:34] LABS: Benzodiazepines Screen,Urine Negative ng/ml (<200); Phencyclidine Screen,Urine Negative ng/ml (<25)
[2023-09-07 12:36] LABS: Barbiturates Screen,Urine Negative ng/ml (<200); Methadone Screen,Urine Negative ng/ml (<300)
[2023-09-07 12:37] LABS: Cocaine Screen,Urine Negative ng/ml (<300)
[2023-09-07 12:38] LABS: Opiate Screen,Urine Negative ng/ml (<300)
[2023-09-07 13:08] LABS: Cannabinoid Screen,Urine Positive ng/ml (<50)
[2023-09-12 18:12] LABS: Alprazolam Negative (Cutoff=100); Benzodiazepines Positive ng/mL (Cutoff=100); Clonazepam Positive (.); Clonazepam Confirm 194 ng/mL (Cutoff=100); Flurazepam Negative (Cutoff=100); Lorazepam Negative (Cutoff=100); Midazolam Negative (Cutoff=100); Opiates Negative ng/mL (Cutoff=100); Temazepam Negative (Cutoff=100); Triazolam Negative (Cutoff=100)
== END ==
LOC: LAB.DROPOF 12:05
PROVIDERS: Visit Provider Family Medicine
DX: M54.16 Radiculopathy, lumbar region (principal); Z79.899 Other long term (current) drug therapy
CPT/HCPCS: 80307; 80346; 80361; G0480

== ENCOUNTER 2024-12-21 13:01 | Outpatient (POV) | payer MEDICARE, MEDICAID, SELFPAY ==
--- NOTE | 2024-12-21 13:31 | A.OFFVIS_ITS ---
HPI Data of Consult Patient: new to practice Consult date: 12/21/24 Requesting Physician: Rocio Gamboa APRN Primary Care Provider: TRAM Ojeda Consult Narrative Reason for consult: Right hip pain History of present illness: Ms. Murphy is a 64 year old female who presents today as a new patient. She is a referral from Janet Saavedra's office. Today she rates her pain a 10 out of 10. Patient states her pain is all in her right hip and has been going on for longer than 2 years. Patient states a lot of this started when she had a fall and then the pain has progressed since. She does describe it as a sharp sensation that is worse with increased activity or ambulation. Patient does state that if she stops and does rest it does ease down some. Patient states the pain does interfere with her ability to perform activities of daily living such as cooking and cleaning. Patient denies any surgery or injection history. Patient does try to do as much activity and exercise as she possibly can on a regular basis. She does state the pain radiates into her right groin. Patient has been tried on gabapentin in the past by Dr. Ventura when he was here however she has not had it for some time. Patient has been tried on tizanidine and baclofen in the past with no additional improvement. Her Red has been reviewed. CC: Rocio Gamboa APRN [facility] Disclaimer: The information contained in this section may have been updated after the patient was seen, as this information can be updated by other users. Medical History Anxiety CAD (coronary artery disease) Cervical disc disease Chronic pain Depression Lumbar degenerative disc disease Lumbar disc disease with radiculopathy Lumbar facet arthropathy Lumbar foraminal stenosis Overweight Social History Smoking Status: Current some day smoker tobacco type: cigarettes packs per day: 1 alcohol intake: never substance use type: denies use current occupational status: disabled Travel in the last 8 weeks: None household members: other housing: house Review of Systems Review of Systems Review of systems:: pertinent systems reviewed and negative unless documented below Review of systems (narrative): Review of Systems: General: No recent weight changes, no fever, no sleep disturbances Respiratory: No cough, no shortness of air, no recurring pulmonary infections Cardiovascular/peripheral vascular: No chest pain, no palpitations, no edema, no shortness of breath Gastrointestinal: No new onset incontinence, normal bowel movements reported Genitourinary: No new onset incontinence Musculoskeletal: Right hip pain Psychiatric: [Normal mood/affect] Neurological: [Denies weakness in extremities], [denies balance issues] Meds Home Medications and Allergies Home Medications ?Medication ?Instructions ?Recorded ?Confirmed ?Type aspirin 81 mg tablet,delayed 81 mg PO QDAY heart #90 tabs 07/05/18 09/07/23 Rx release (Adult Low Dose Aspirin) atorvastatin 10 mg tablet 10 mg PO DAILY #90 tabs 03/18/23 09/07/23 Rx cholecalciferol (vitamin D3) 1,250 1,250 mcg PO WEEKLY #12 caps 03/18/23 09/07/23 Rx mcg (50,000 unit) capsule lisinopril 20 See Rx Instructions .Route 07/22/23 09/07/23 Rx mg-hydrochlorothiazide 12.5 mg .COMPLEX #30 tabs tablet bisoprolol fumarate 5 mg tablet 5 mg PO DAILY #90 tabs 09/07/23 09/07/23 Rx clonazepam 0.5 mg tablet 0.5 mg PO TID anxiety #90 tabs 09/07/23 09/07/23 Rx gabapentin 800 mg tablet 800 mg PO QID #120 tabs 09/07/23 09/07/23 Rx oxycodone 10 mg tablet 10 mg PO QID PRN pain #120 tabs 09/08/23 09/08/23 Rx amitriptyline 10 mg tablet 10 mg PO DAILY #14 tabs 12/21/24 Rx methocarbamol 750 mg tablet 750 mg PO TID #42 tabs 12/21/24 Rx New Prescriptions to Start Prescriptions: amitriptyline Cooper,Rocio A methocarbamol Gamboa,Rocio A Allergies Allergy/AdvReac Type Severity Reaction Status Date / Time buprenorphine (From Suboxone) Allergy Intermediate I-RASH Verified 09/07/23 09:41 buspirone (From BuSpar) Allergy Intermediate I-RASH Verified 09/07/23 09:41 cyclobenzaprine (From Allergy Intermediate I-RASH Verified 09/07/23 09:41 Flexeril) naloxone (From Suboxone) Allergy Intermediate I-RASH Verified 09/07/23 09:41 naproxen (From Naprosyn) Allergy Intermediate I-RASH Verified 09/07/23 09:41 clopidogrel (From Plavix) Allergy Mild Rash Verified 09/07/23 09:41 duloxetine (From Cymbalta) Allergy Mild Verified 09/07/23 09:41 paroxetine (Paxil) Allergy Mild Verified 09/07/23 09:41 Objective Narrative: Physical Exam: General: Alert and oriented x3, no acute distress, pleasant and cooperative Lungs: Respirations even and unlabored, symmetrical chest expansion Eyes: PERRL Musculoskeletal: Flexion and extension of right hip somewhat guarded secondary to pain, [antalgic gait noted] extreme point tenderness along right greater trochanteric bursa Neurological: Speech clear, no gross sensory deficit Additional findings Additional findings: FINDINGS: RIGHT HIP Two views of the right hip demonstrate no acute fracture or dislocation. There are severe degenerative changes of the right hip with multiple subchondral cysts. Mild degenerative changes are noted at the left hip. The visualized bony structures are well aligned. There are postoperative changes of the pelvis. No soft tissue abnormality is seen. IMPRESSION: Severe degenerative changes of the right hip without acute bony abnormality. Reviewed, Interpreted and Dictated by Skyler Jama III, MD Transcribed by Berta Melo Authenticated and [facility] Assessment and Plan *Assessment and plan (1) Arthritis of right hip: Status: Acute Category: Medical Code(s): M16.11 - Unilateral primary osteoarthritis, right hip (2) Trochanteric bursitis of right hip: Status: Acute Category: Medical Code(s): M70.61 - Trochanteric bursitis, right hip Plan I did discuss with the patient due to her very limited range of motion of her right hip and point tenderness that I do believe she would benefit from both a greater trochanteric bursa injection as well as an intra-articular hip injection. Patient is open to these options. I will order the patient a compounded cream and also send in a 2-week dose of methocarbamol 750 mg 3 times daily as needed and amitriptyline 10 mg daily. Patient was counseled to try these medications at separate time frames. I did recommend that she start with amitriptyline daily and see how that improves some of her symptoms over the next week and then she could add the methocarbamol as needed. Patient was counseled to discontinue all other muscle relaxers and she did states she is not currently on gabapentin. Patient will also be scheduled for a right greater trochanteric bursa injection under fluoroscopy. Patient has tried and failed conservative therapy including oral medication, heat and ice, topicals, at home stretching exercise for longer than 12 weeks. Patient has had this pain present for longer than 2 years. Patient has been instructed to contact the clinic with any concerns before the next appointment. Dr. Scott has reviewed this note and agrees with this plan of c are. This note was dictated using voice recognition software and make contain errors or omissions. All injections are used with Lidocaine, Bupivacaine and Depo Medrol. Occasionally urine drug screen is needed to verify patient's compliance with our office pain contract. This is ordered based off specific treatments related to chronic pain with the potential to abuse certain medications.
[2024-12-21 13:57] VITALS: BP 195/93; PULSE 58; RESP 18; O2SAT 97; BMI 27.2
== END 2024-12-21 23:59 | disposition home or self-care (01) ==
PROVIDERS: PCP Physician Assistant; Visit Provider Nurse Practitioner Family
DX: M16.11 Unilateral primary osteoarthritis, right hip (principal); M70.61 Trochanteric bursitis, right hip; Z73.89 Other problems related to life management difficulty; F17.210 Nicotine dependence, cigarettes, uncomplicated
CPT/HCPCS: 99202; G0463

== ENCOUNTER 2025-01-30 11:02 | Outpatient (RCR) | payer MEDICARE, MEDICAID, SELFPAY | END 2025-01-30 23:59 | disposition home or self-care (01) | LOC: PT 11:02 | PROVIDERS: PCP Physician Assistant; Visit Provider Emergency Medicine | DX: I89.0 Lymphedema, not elsewhere classified (principal) | CPT/HCPCS: 97163 ==